=== PATIENT | male | born 1955 | race Caucasian/White ===

== ENCOUNTER 2017-12-01 00:09 | Emergency (ER) | payer OTHER ==
[~2017-12-01] VITALS: Ht 170.2 cm; Wt 87.1 kg
[2017-12-01] MEDS ORDERED: TAMS0.4C (00:29)
[2017-12-01] MEDS ORDERED: VASOTEC20 M1 (00:29)
== END 2017-12-01 02:35 | disposition home or self-care (01) ==
LOC: ER 00:09
DX: R00.2 Palpitations (principal)